=== PATIENT | female | born 1950 | race Caucasian/White ===

== ENCOUNTER → 2017-08-06 | Outpatient (CLI) | payer OTHER | LOC: FIMAGING 09:45 | PROVIDERS: ATTEND Orthopaedic Surgery | DX: M17.12 Unilateral primary osteoarthritis, left knee (principal) ==

== ENCOUNTER 2017-08-20 09:03 | Observation (INO) | payer OTHER ==
--- NOTE | 2017-08-20 07:17 | PDHPUP ---
History & Physical Update H&P update statement: This history and physical update is based on an assessment of the patient which was completed after admission or registration (within 24 hours), but prior to the surgery/procedure. H&P update: H&P reviewed & patient examined, no change in patient's condition since H&P completed
[~2017-08-20 09:03] MED LIST: BUPI/epINEPH/KETOROLAC IU ONE; ROPIVACAINE 0.2% 80 MG, EPINEPHrine 0.2 MG, KETOROLAC TROMETHAMINE 30 MG in SYRINGE 0 ML IU ONE; TRANEXAMIC ACID 3,000 MG in NS (SYRINGE) 50 ML IRR ONE
[2017-08-20] MEDS ORDERED: DEXAMETHASONE 4 MG/ML VIAL IVP ONE (09:31)
[2017-08-20] MEDS ORDERED: ceFAZolin 2 GM/SWFI 2 GM/20 ML SYR IVP ONE (09:31)
[2017-08-20] MEDS ORDERED: FAMOTIDINE 20 MG TAB PO ONE (09:31)
[2017-08-20] MEDS ORDERED: ACETAMINOPHEN 325 MG TAB PO ONE (09:31)
[2017-08-20] MEDS ORDERED: LR 1,000 ML IV ONE (09:32)
[2017-08-20] MEDS ORDERED: LIDOCAINE 1% 2 ML INJ ID PRN (09:32)
[2017-08-20] MEDS ORDERED: MIDAZOLAM 2 MG/2 ML VIAL IVP ONE (09:55)
--- NOTE | 2017-08-20 09:57 | PDANEPAE ---
ANE History of Present Illness 66 yo female with OA for L TKA. ANE Past Medical History - Cardiovascular History Hx Hypertension: No Hx Arrhythmias: No Hx Chest Pain: No Hx Coronary Artery / Peripheral Vascular Disease: No Hx CHF / Valvular Disease: No Hx Palpitations: No - Pulmonary History Hx COPD: No Hx Asthma/Reactive Airway Disease: No Hx Recent Upper Respiratory Infection: No Hx Oxygen in Use at Home: No Hx Sleep Apnea: No Sleep Apnea Screening Result - Last Documented: Negative - Neurologic History Hx Cerebrovascular Accident: No Hx Seizures: No Hx Dementia: No - Endocrine History Hx Diabetes: No Hypothyroid: No Hyperthyroid: No Obesity: no - Renal History Hx Renal Disorders: No - Liver History Hx Hepatic Disorders: No - Neurological & Psychiatric Hx Hx Neurological and Psychiatric Disorders: Yes Neurological / Psychiatric History Comment: SITUATIONAL ANXIETY - Cancer History Hx Cancer: Yes Cancer History Comment: MELANOMA REMOVED - Congenital Disorder History Hx Congenital Disorders: No - GI History Hx Gastrointestinal Disorders: No - Other Health History Other Health History: Pt has been known to pass out when being prepped for a procedure - Chronic Pain History Chronic Pain: Yes (back,chronic pain in jaw) - Surgical History Prior Surgeries: KNEE SCOPE CHONDOPLASTY. TMJ SCOPE. BILAT CATARACT SX. MELANOMA REMOVED ANE Review of Systems Review of Systems: - Exercise capacity METS (RN): 4 METS - Systems Constitutional: Reports: no symptoms Cardiac: Reports: no symptoms Respiratory: Reports: no symptoms Gastrointestinal: Reports: abdominal distention, diarrhea ANE Patient History - Allergies Allergies/Adverse Reactions: No Known Allergies Allergy (Verified 08/07/17 16:43) - Home Medications Home Medications: C/E/Zn/Cu/OM3/DHA/EPA/LUT/ZEAX [Preservision Areds 2 Softgel] 1 each PO DAILY [Last Taken 3 Weeks Ago ~07/30/17] Calcium Carbonate [Oyster Shell Calcium 500 mg (*)] 500 mg PO DAILY 08/07/17 [ Last Taken 2 Weeks Ago ~08/06/17] Glucosamine/Chondroitin [Glucosamine/Chondroitin (*)] 1 each PO DAILY 08/07/17 [ Last Taken 2 Weeks Ago ~08/06/17] Ibuprofen/Diphenhydramine Cit [Advil Pm Caplet] 1 each PO HS 08/07/17 [Last Taken 1 Week Ago ~08/13/17] Multivitamins [Multivitamin (*)] 1 each PO DAILY 08/07/17 [Last Taken 2 Weeks Ago ~08/06/17] Melvin-3 Fatty Acids [Fish Oil 1000 mg (*)] 1,000 mg PO DAILY 08/07/17 [Last Taken 3 Days Ago ~08/17/17] SUMAtriptan [Imitrex Nasal 5 MG spray (*)] 20 mg EACHNARE ONCE PRN 08/07/17 [ Last Taken 1 Month Ago ~07/23/17] - NPO status NPO Since - Liquids (Date): 08/20/17 NPO Since - Liquids (Time): 07:30 - Anes Hx Anes Hx: post operative nausea and vomiting - Smoking Hx Smoking Status: Former smoker - Alcohol Use Alcohol Use: Occasionally - Family Anes Hx Family Anes Hx: neg - N/A Family Hx Anesthesia Complications: NONE ANE Labs/Vital Signs - Vital Signs Vital Signs: reviewed preoperatively; see RN documention for details Height: 167.64 cm Weight: 66.678 kg ANE Physical Exam - Airway Neck exam: FROM Mallampati Score: Class 3 Mouth exam: normal dental/mouth exam - Pulmonary Pulmonary: clear to auscultation - Cardiovascular Cardiovascular: regular rate and rhythym - ASA Status ASA Status: II ANE Anesthesia Plan Anesthesia Plan: spinal Regional Anesthesia: adductor canal FNB
[2017-08-20] MEDS ORDERED: TRANEXAMIC ACID 3,000 MG/50 ML BAG IRR ONE (10:00)
[2017-08-20] MEDS ORDERED: fentaNYL 100 MCG/2 ML INJ ONE ×3 (11:11→13:29)
[2017-08-20] MEDS ORDERED: PROPOFOL/EMULSION 500 MG/50 ML BOTTLE IV ONE ×2 (11:12→12:10)
[2017-08-20] MEDS ORDERED: SCOPOLAMINE HYDROBROMIDE 1 MG/3 DAYS PATCH TD ONE (11:35)
[2017-08-20] MEDS ORDERED: SCOPOLAMINE HYDROBROMIDE 1 MG/3 DAYS PATCH TD SCH (11:45)
[2017-08-20] MEDS ORDERED: diphenhydrAMINE 25 MG CAP PO PRN (11:46)
[2017-08-20] MEDS ORDERED: PROMETHAZINE HCL 25 MG SUPPR PR PRN (11:46)
[2017-08-20] MEDS ORDERED: TEMAZEPAM 15 MG CAP PO PRN (11:46)
[2017-08-20] MEDS ORDERED: CYCLOBENZAPRINE 10 MG TAB PO PRN (11:46)
[2017-08-20] MEDS ORDERED: METOCLOPRAMIDE 10 MG/2 ML VIAL IVP PRN (11:46)
[2017-08-20] MEDS ORDERED: ONDANSETRON 4 MG/2 ML VIAL IVP PRN (11:46)
[2017-08-20] MEDS ORDERED: MAGNESIUM HYDROXIDE 30 ML UDCUP PO PRN (11:46)
[2017-08-20] MEDS ORDERED: POLYETHYLENE GLYCOL 3350 17 GM PKT PO PRN (11:46)
[2017-08-20] MEDS ORDERED: DIPHENOXYLATE/ATROPINE LOMOTIL 1 TAB PO PRN (11:46)
[2017-08-20] MEDS ORDERED: PROMETHAZINE HCL 25 MG/ML INJ IVP PRN ×2 (11:46→12:24)
[2017-08-20] MEDS ORDERED: BISACODYL 10 MG SUPP PR PRN (11:46)
[2017-08-20] MEDS ORDERED: LACTULOSE 20 GM/30 ML UDCUP PO PRN (11:46)
[2017-08-20] MEDS ORDERED: ONDANSETRON DISINTEGRATING 4 MG TAB PO PRN (11:46)
[2017-08-20] MEDS ORDERED: ROCURONIUM 50 MG/5 ML VIAL ONE (11:56)
[2017-08-20] MEDS ORDERED: ONDANSETRON 4 MG/2 ML VIAL ONE (11:58)
[2017-08-20] MEDS ORDERED: LR 1,000 ML IV SCH (12:00)
[2017-08-20] MEDS ORDERED: ROPIVACAINE HCL 150 MG/30 ML INJ ONE (12:17)
[2017-08-20] MEDS ORDERED: LR 500 ML IV PRN (12:24)
[2017-08-20] MEDS ORDERED: OXYCODONE/APAP 5/325 TAB PO PRN (12:24)
[2017-08-20] MEDS ORDERED: NALOXONE HCL 0.4 MG/ML INJ IVP PRN (12:24)
[2017-08-20] MEDS ORDERED: GLYCOPYRROLATE 0.2 MG/1 ML VIAL ONE (12:36)
--- NOTE | 2017-08-20 12:43 | POSTOPPROG ---
Post Op Note Date of Operation: 08/20/17 Surgeon: Rayray Cochran Meat Pumper: james cochran Anesthesiologist: dr. manriquez Anesthesia: Spinal, Other (Specify) (adductor canal block) Pre-op Diagnosis: L knee OA Post-op Diagnosis: same Indication: left knee pain due to OA that failed conservative measures Procedure: L TKA robot assisted Findings: severe knee OA Inf/Abcess present in the surg proc area at time of surgery?: No EBL: 50-100
--- NOTE | 2017-08-20 13:06 | POSTANESTH ---
Post Anesthetic Evaluation Cardiovascular Status: Normal, Stable Respiratory Status: Normal, Stable Level of Consciousness/Mental Status: Can Participate in Eval, Moderately Sleepy Pain Control: Adequate, Prn Tx Ordered Nausea/Vomiting Control: Adequate, Prn Tx Ordered Complications Possibly Related to Anesthesia: None Noted (L adductor canal block placed in PACU. Pt tolerated procedure well.)
[2017-08-20] MEDS ORDERED: OXYCODONE/APAP 5/325 TAB ONE (13:29)
[2017-08-20] MEDS: fentaNYL 100 MCG/2 ML INJ IVP PRN ×4 (13:31→13:58)
[2017-08-20] MEDS ORDERED: ceFAZolin 2 GM/DEXTROSE 100 ML IV SCH (14:00)
[2017-08-20] MEDS: ACETAMINOPHEN 325 MG TAB PO SCH ×2 (14:58→18:21)
[2017-08-20] MEDS: oxyCODONE IR 5 MG TAB PO PRN (16:03)
[2017-08-20] MEDS: ASPIRIN 81 MG CHEWABLE TAB PO SCH (21:23)
[2017-08-20] MEDS: ceFAZolin 2 GM/SWFI 2 GM/20 ML SYR IVP SCH (21:23)
[2017-08-20] MEDS: SENNOSIDES/DOCUSATE SODIUM TAB PO SCH (21:23)
[2017-08-20] MEDS: FAMOTIDINE 20 MG TAB PO SCH (21:23)
[2017-08-21] MEDS: ACETAMINOPHEN 325 MG TAB PO SCH ×2 (00:38→04:54)
[2017-08-21] MEDS: oxyCODONE IR 5 MG TAB PO PRN ×2 (00:49→09:07)
[2017-08-21] MEDS: ceFAZolin 2 GM/SWFI 2 GM/20 ML SYR IVP SCH (04:38)
[2017-08-21 07:23] VITALS: BP 115/67; RESP 18; TEMP 97.4
--- NOTE | 2017-08-21 08:54 | SOAPPROG ---
SOAP Progress Note Assessment/Plan: Assessment: Patient is doing well POD 1 s/p L TKA Pain management: pain is well controlled on oral pain meds. VTE ppx: recommend aspirin 81 mg BID for 4 weeks, cont ARIANE and SCDs D/c planning: d/c to home today pending release from PT Plan: 08/21/17 08:52 08/21/17 08:53 Subjective: patient is doing well, denies SOB, chest pain and N/V. Objective: Vital Signs Temp Pulse Resp BP Pulse Ox 36.3 C 56 L 18 115/67 98 08/21/17 07:22 08/21/17 07:22 08/21/17 07:22 08/21/17 07:22 08/21/17 07:22 Laboratory Results 08/21/17 04:36 08/20/17 08/21/17 08/22/17 05:59 05:59 05:59 Intake Total 1440 Output Total 1930 Balance -490 LLE; incision dressing is clean and dry, NVI, +pf/df ICD10 Worksheet Patient Problems: Problems Problem Status Onset Primary localized osteoarthritis of left knee Acute
[2017-08-21] MEDS: FAMOTIDINE 20 MG TAB PO SCH (09:05)
[2017-08-21] MEDS: ASPIRIN 81 MG CHEWABLE TAB PO SCH (09:06)
[2017-08-21] MEDS: SENNOSIDES/DOCUSATE SODIUM TAB PO SCH (09:06)
[2017-08-21 13:55] VITALS: PULSE 62; O2SAT 96
--- NOTE | 2017-08-21 15:06 | GDS ---
[f rep st] DISCHARGE SUMMARY ADMISSION DIAGNOSIS: Left knee osteoarthritis. DISCHARGE DIAGNOSIS: Left knee osteoarthritis. PROCEDURE: Left total knee arthroplasty. VTE PROPHYLAXIS: Recommend aspirin 81 mg twice a day for 4 weeks. BRIEF DESCRIPTION OF HOSPITAL STAY: Patient was admitted for an elective joint arthroplasty. The pa schuyler tolerated the procedure well and has passed physical therapy. The patient was given appropriat e antibiotic prophylaxis and venous thromboembolism prophylaxis. The patient's pain was well control led on oral pain medication, patient was holding down food, and had urinated. Decision was made to d ischarge the patient. The patient was given post-operative prescriptions pre-operatively. PLAN: To follow up as scheduled at Dr. Child's office September 11 at 10:15. /[id number]/MODL
--- NOTE | 2017-08-21 19:17 | GOP ---
[f rep st] OPERATIVE REPORT DATE OF OPERATION: 08/20/2017 SURGEON: Feliciano Child MD TRAVELING SECRETARY: Arelis Child, CHRISTOFER ANESTHESIA: Spinal. PREOPERATIVE DIAGNOSIS: Left knee osteoarthritis. POSTOPERATIVE DIAGNOSIS: Left knee osteoarthritis. PROCEDURE PERFORMED: Left total knee arthroplasty with computer navigation, robotic assist. FINDINGS: ESTIMATED BLOOD LOSS: 30 cc. INDICATIONS: The patient is a 66-year-old female with severe and progressive pain and deformity of t he left knee unresponsive to conservative care. The risks and benefits of surgical intervention were explained in detail. DESCRIPTION OF PROCEDURE: The patient was brought to the operative room and placed on the table in t he supine position. Spinal anesthesia was induced without difficulty. A pneumatic tourniquet was appl ied about the left proximal thigh, and the leg was prepped and draped in a sterile fashion. The leg h older was applied. After exsanguination by elevation the tourniquet was inflated to 250 mmHg. Incision was made anterior medial from the tibial tuberosity to a point 2 cm proximal to the superior pole of the patella. Type II VMO. Pathology, severe lateral and patellofemoral osteoarthritis. Me dial parapatellar arthrotomy was carried out from the superior pole of the patella and posteriorly in line with the fibers of the Type II VMO. The medial collateral ligament was elevated and the infrapa tellar fat pad was resected. The patella was everted and the articular surface was excised. A 35 mm patellar button was placed. Attention was turned first to the distal aspect of the femur. After exposure of the femur, 2 half pi ns were placed for fixation of the femoral array. In a similar fashion, 2 pins were placed anteromed ial on the tibia for fixation of the tibial array. External land marking and registration of the hip center was performed without difficulty. Internal femoral and tibial registration was carried out w ithout difficulty and the femoral and tibial checkpoints were placed and verified for accuracy. Attention was turned to the femur. The foot print for the size 4 femoral component was cut with the saw using the [employer] robotic system and verified for accuracy against the CT based plan. In a similar f ashion, the saw was used to cut the footprint for the size 4 tibial component using the [employer] system an d verified for accuracy against the CT based plan. The tibial articular surface was excised without d ifficulty, followed by the intercondylar box cut. The knee was extended and the remnants of the medial and lateral meniscus were excised. The posterior capsule was injected with ropivacaine, epinephrine and Toradol. A size 4 x 9 tibial tray was positi oned. Trial reduction was then carried out. There was excellent range of motion, alignment, and stabi lity using the 9 mm polyethylene press-fit components. All trials were then removed. The joint was thoroughly irrigated and carefully dried. The press-fit c omponents were implanted. The permanent 9 mm polyethylene was placed without difficulty. The tourniquet was deflated and all bleeders were coagulated. The wound was thoroughly irrigated and closed using interrupted sutures of 2-0 Vicryl for the joint capsule. The subcu was closed with 3-0 V icryl and the skin with 4-0 Monocryl. Dermabond and Steri-Strips were applied followed by a compress eric dressing. The patient was then moved from the operating room to the recovery room in good conditi on, having tolerated the procedure well. /[id number]/MODL
== END 2017-08-21 10:54 | disposition home or self-care (01) ==
LOC: INTOOBSV 09:03 → F3E 09:03 → F3N 14:08
PROVIDERS: ADMIT Orthopaedic Surgery; ATTEND Orthopaedic Surgery
DX: M17.12 Unilateral primary osteoarthritis, left knee (principal); Z85.820 Personal history of malignant melanoma of skin; Z87.891 Personal history of nicotine dependence
CPT/HCPCS: 27447; 73560; 88311; 97110; 97116; 97161; 97166; 97535; C1776; G8978; G8979; G8980; G8987; G8988; G8989; J0171; J0690; J1100; J1885; J2250; J2405; J2704; J2795; J3010

== ENCOUNTER → 2018-09-29 | Outpatient (CLI) | payer OTHER | LOC: FIMAGING 07:48 | PROVIDERS: ATTEND Internal Medicine | DX: Z12.31 Encounter for screening mammogram for malignant neoplasm of breast (principal) ==

== ENCOUNTER → 2018-10-16 | Outpatient (CLI) | payer OTHER | LOC: FIMAGING 13:55 | PROVIDERS: ATTEND Internal Medicine | DX: R92.8 Other abnormal and inconclusive findings on diagnostic imaging of breast (principal) ==

== ENCOUNTER → 2018-10-21 | Outpatient (CLI) | payer OTHER | LOC: FIMAGING 10:52 | PROVIDERS: ATTEND Internal Medicine | DX: Z13.820 Encounter for screening for osteoporosis (principal); Z78.0 Asymptomatic menopausal state ==